=== PATIENT | male | born 1990 | race Caucasian/White ===

== ENCOUNTER 2019-01-08 09:54 | Inpatient (IN) | payer MEDICAID ==
[~2019-01-08] VITALS: Ht 162.6 cm; Wt 64.5 kg
[2019-01-08 10:35] LABS: BASOPHILS % (AUTO) 0.7 % (0.0-2.0); EOSINOPHILS % (AUTO) 2.9 % (1.0-6.0); HEMATOCRIT 46.3 % (41-53); HEMOGLOBIN 16.2 g/dL (13.5-17.5); LYMPHOCYTES # (AUTO) 1.8 K/uL (1.0-4.8); MEAN CORPUSCULAR HEMOGLOBIN 33.9 pg (26.0-34.0); MEAN CORPUSCULAR HGB CONC 34.9 G/dL (31.0-37.0); MEAN CORPUSCULAR VOLUME 97 fL (80-100); MONOCYTES # (AUTO) 0.6 K/uL (0.1-1.0); NEUTROPHILS # (AUTO) 6.8 K/uL (1.8-7.7); NEUTROPHILS % (AUTO) 71.4 % (40.0-70.0); PLATELET COUNT (AUTO) 335 K/uL (150-450); RED BLOOD CELL COUNT(AUTO) 4.78 MIL/uL (4.50-5.90); RED CELL DISTRIBUTION WIDTH 13.1 % (11.5-14.5)
[2019-01-08 10:48] LABS: ANION GAP 9 mmol/L (8-16); CALCIUM, TOTAL 8.7 mg/dL (8.8-10.5); CARBON DIOXIDE 28 mmol/L (22-29); CHLORIDE 101 mmol/L (98-107); CREATININE 0.86 mg/dL (0.60-1.30); GLOMERULAR FILTR. RATE CALC > 60 mL/min (>60); GLUCOSE,RANDOM 96 mg/dL (70-110); POTASSIUM 3.8 mmol/L (3.5-5.1); SODIUM SERUM 138 mmol/L (136-145); UREA NITROGEN, BLOOD 12 mg/dL (7-18)
[2019-01-08 10:55] LABS: ALANINE AMINOTRANSFERASE 131 U/L (12-78); ALBUMIN 4.2 g/dL (3.4-5.0); ALKALINE PHOSPHATASE 76 U/L (46-116); ASPARTATE AMINOTRANSFERASE 112 U/L (15-37); BILIRUBIN,TOTAL 0.3 mg/dL (0.1-1.0); TOTAL PROTEIN, SERUM 8.2 g/dL (6.4-8.2)
[2019-01-08] MEDS ORDERED: ACETAMINOPHEN 325 MG TABLET PO PRN ×2 (12:00→18:00)
[2019-01-08] MEDS ORDERED: ZOLPIDEM TARTRATE 10 MG TABLET PO PRN (12:00)
[2019-01-08] MEDS ORDERED: HALOPERIDOL 5 MG TABLET PO PRN (12:00)
[2019-01-08] MEDS ORDERED: LORazepam 2 MG TABLET PO PRN (12:00)
[2019-01-08] MEDS ORDERED: IBUPROFEN 400 MG TABLET PO PRN ×2 (12:00→18:00)
[2019-01-08] MEDS ORDERED: LORazepam 2 MG TABLET PO ONE (12:30)
[2019-01-08] MEDS ORDERED: HALOPERIDOL 5 MG TABLET PO ONE (12:30)
[2019-01-08] MEDS ORDERED: DiphenhydrAMINE HCL 50 MG CAPSULE PO ONE (12:30)
[2019-01-08 15:27] LABS: AMPHET/METH SCREEN,URINE NEGATIVE (NEGATIVE); BARBITURATE SCREEN, URINE NEGATIVE (NEGATIVE); BENZODIAZEPINES SCREEN,URINE NEGATIVE (NEGATIVE); CANNABINOID SCREEN,URINE POSITIVE (NEGATIVE); COCAINE SCREEN,URINE NEGATIVE (NEGATIVE); METHADONE SCREEN, URINE NEGATIVE (NEGATIVE); OPIATE SCREEN,URINE NEGATIVE (NEGATIVE)
[2019-01-08 15:30] LABS: PHENCYCLIDINE SCREEN,URINE NEGATIVE (NEGATIVE)
[2019-01-08 16:00] VITALS: BP 135/91
[2019-01-08] MEDS ORDERED: ALBUTEROL SULFATE HFA 90 MCG/PUFF 8 GM INHALER IH PRN (18:00)
[2019-01-08] MEDS ORDERED: MAGNESIUM HYDROXIDE SUSPENSION 30 ML UDCUP PO PRN (18:00)
[2019-01-08] MEDS ORDERED: PETROLATUM,WHITE 71 GM JELLY TP PRN (18:00)
[2019-01-08] MEDS ORDERED: DOCUSATE SODIUM 100 MG CAPSULE PO PRN (18:00)
[2019-01-08] MEDS ORDERED: GuaiFENesin/D-METHORPHAN [SUGAR-FREE] 200-20MG/10 ML SYRUP UDCUP PO PRN (18:00)
[2019-01-08] MEDS ORDERED: NICOTINE 14 MG/24 HOUR PATCH TD PRN (18:00)
[2019-01-08] MEDS ORDERED: CloNIDine HCL 0.1 MG TABLET PO PRN (18:00)
[2019-01-08] MEDS ORDERED: MAG HYDROX/AL HYDROX/SIMETH ES 30 ML SUSPENSION UDCUP PO PRN (18:00)
[2019-01-08] MEDS ORDERED: LOPERAMIDE HCL 2 MG CAPSULE PO PRN (18:00)
[2019-01-08] MEDS ORDERED: ONDANSETRON HCL 4 MG TABLET PO PRN (18:00)
[2019-01-09] VITALS (7 sets, daily range): BP systolic 127–146; BP diastolic 68–85
[2019-01-09 06:37] LABS: BASOPHILS % (AUTO) 0.7 % (0.0-2.0); EOSINOPHILS % (AUTO) 1.4 % (1.0-6.0); HEMATOCRIT 44.5 % (41-53); HEMOGLOBIN 15.6 g/dL (13.5-17.5); LYMPHOCYTES # (AUTO) 1.7 K/uL (1.0-4.8); LYMPHOCYTES % (AUTO) 14.3 % (22.0-44.0); MEAN CORPUSCULAR HGB CONC 35.1 G/dL (31.0-37.0); MEAN CORPUSCULAR VOLUME 97 fL (80-100); MONOCYTES # (AUTO) 1.1 K/uL (0.1-1.0); MONOCYTES % (AUTO) 9.3 % (2.0-9.0); NEUTROPHILS # (AUTO) 8.6 K/uL (1.8-7.7); NEUTROPHILS % (AUTO) 74.3 % (40.0-70.0); PLATELET COUNT (AUTO) 309 K/uL (150-450)
[2019-01-09 07:02] LABS: HEMOGLOBIN A1C 5.2 % (4.5-6.2)
[2019-01-09 07:10] LABS: ALANINE AMINOTRANSFERASE 107 U/L (12-78); ALKALINE PHOSPHATASE 73 U/L (46-116); ANION GAP 9 mmol/L (8-16); ASPARTATE AMINOTRANSFERASE 63 U/L (15-37); BILIRUBIN,TOTAL 0.9 mg/dL (0.1-1.0); CALCIUM, TOTAL 9.6 mg/dL (8.8-10.5); CARBON DIOXIDE 28 mmol/L (22-29); CHLORIDE 97 mmol/L (98-107); CHOLESTEROL 219 mg/dL (131-200); GLOMERULAR FILTR. RATE CALC > 60 mL/min (>60); GLUCOSE,RANDOM 91 mg/dL (70-110); HDL CHOLESTEROL 74 mg/dL (40-60); LDL CHOL (CALC.) 129 mg/dL (0-130); SODIUM SERUM 134 mmol/L (136-145); THYROID STIMULATING HORMONE 2.71 uIU/mL (0.36-3.74); TRIGLYCERIDES 79 mg/dL (15-150); UREA NITROGEN, BLOOD 16 mg/dL (7-18)
[2019-01-09] MEDS: RisperiDONE 1 MG TABLET PO SCH ×2 (13:58→20:24)
[2019-01-09] MEDS: SERTRALINE HCL 50 MG TABLET PO SCH (13:58)
[2019-01-09] MEDS: MULTIVITAMINS WITH MINERALS, THERAPEUTIC TABLET PO SCH (13:59)
[2019-01-09] MEDS: FOLIC ACID 1 MG TABLET PO SCH (13:59)
[2019-01-09] MEDS ORDERED: CYANOCOBALAMIN 1,000 MCG/ML VIAL IM ONE (14:00)
[2019-01-09] MEDS ORDERED: LORazepam 2 MG TABLET PO PRN (14:00)
[2019-01-09] MEDS: THIAMINE HCL 100 MG TABLET PO SCH (16:20)
[2019-01-10] VITALS (8 sets, daily range): BP systolic 118–147; BP diastolic 77–82
[2019-01-10] MEDS ORDERED: LORazepam 2 MG TABLET PO PRN (07:00)
[2019-01-10] MEDS: THIAMINE HCL 100 MG TABLET PO SCH ×2 (08:12→16:11)
[2019-01-10] MEDS: FOLIC ACID 1 MG TABLET PO SCH (08:12)
[2019-01-10] MEDS: LORazepam 2 MG TABLET PO SCH ×4 (08:12→20:45)
[2019-01-10] MEDS: RisperiDONE 1 MG TABLET PO SCH ×2 (08:13→20:45)
[2019-01-10] MEDS: SERTRALINE HCL 50 MG TABLET PO SCH (08:13)
[2019-01-10] MEDS: MULTIVITAMINS WITH MINERALS, THERAPEUTIC TABLET PO SCH (08:13)
[2019-01-10] MEDS: SODIUM CHLORIDE 1 GM TABLET PO SCH (08:14)
[2019-01-11 06:14] VITALS: BP 137/87
[2019-01-11 06:16] VITALS: BP 137/87
[2019-01-11] MEDS: SERTRALINE HCL 50 MG TABLET PO SCH (08:28)
[2019-01-11] MEDS: FOLIC ACID 1 MG TABLET PO SCH (08:28)
[2019-01-11] MEDS: MULTIVITAMINS WITH MINERALS, THERAPEUTIC TABLET PO SCH (08:28)
[2019-01-11] MEDS: THIAMINE HCL 100 MG TABLET PO SCH (08:28)
[2019-01-11] MEDS: RisperiDONE 1 MG TABLET PO SCH (08:28)
[2019-01-11] MEDS: LORazepam 2 MG TABLET PO SCH (08:28)
[2019-01-11] MEDS: SODIUM CHLORIDE 1 GM TABLET PO SCH (08:28)
[2019-01-11 08:49] VITALS: BP 119/96
[2019-01-11 09:14] VITALS: BP 119/96
[2019-01-11] MEDS ORDERED: RISP2 PO (11:07)
[2019-01-11] MEDS ORDERED: SERT50TA12 PO (11:08)
[2019-01-11] MEDS ORDERED: NACL1 PO (11:11)
[2019-01-12] MEDS ORDERED: LORazepam 1 MG TABLET PO PRN (07:00)
[2019-01-12] MEDS ORDERED: LORazepam 1 MG TABLET PO SCH (09:00)
[2019-01-13] MEDS ORDERED: LORazepam 1 MG TABLET PO PRN (07:00)
== END 2019-01-11 12:00 | disposition home or self-care (01) | DRG 750 ==
LOC: EMS 09:55 → 3EC 15:01
PROVIDERS: ADMIT Psychiatry & Neurology Psychiatry; ATTEND Psychiatry & Neurology Psychiatry
DX: F20.0 Paranoid schizophrenia (principal); R45.851 Suicidal ideations; E87.1 Hypo-osmolality and hyponatremia; F17.210 Nicotine dependence, cigarettes, uncomplicated; Z28.21 Immunization not carried out because of patient refusal; Z88.0 Allergy status to penicillin; Z91.5 Personal history of self-harm; D72.829 Elevated white blood cell count, unspecified; E78.5 Hyperlipidemia, unspecified; F10.10 Alcohol abuse, uncomplicated; F12.90 Cannabis use, unspecified, uncomplicated; R74.0 Nonspecific elevation of levels of transaminase and lactic acid dehydrogenase [LDH]
CPT/HCPCS: 83036; 84443; G0480; J3420

== ENCOUNTER 2019-01-11 22:15 | Inpatient (IN) | payer MEDICAID ==
[~2019-01-11] VITALS: Ht 165.1 cm; Wt 62.7 kg
[~2019-01-11 22:15] MED LIST: NACL1 PO; RISP2 PO; SERT50TA12 PO
[2019-01-11] MEDS ORDERED: DiphenhydrAMINE HCL 50 MG/ML VIAL IM ONE (23:15)
[2019-01-11] MEDS ORDERED: LORazepam 2 MG/ML VIAL IM ONE (23:15)
[2019-01-11] MEDS ORDERED: HALOPERIDOL LACTATE 5 MG/ML VIAL IM ONE (23:15)
[2019-01-11 23:23] LABS: BASOPHILS % (AUTO) 0.7 % (0.0-2.0); EOSINOPHILS % (AUTO) 2.5 % (1.0-6.0); HEMATOCRIT 46.7 % (41-53); HEMOGLOBIN 16.1 g/dL (13.5-17.5); LYMPHOCYTES # (AUTO) 2.6 K/uL (1.0-4.8); MEAN CORPUSCULAR HEMOGLOBIN 33.3 pg (26.0-34.0); MEAN CORPUSCULAR HGB CONC 34.4 G/dL (31.0-37.0); MEAN CORPUSCULAR VOLUME 97 fL (80-100); MONOCYTES # (AUTO) 0.9 K/uL (0.1-1.0); MONOCYTES % (AUTO) 9.2 % (2.0-9.0); NEUTROPHILS # (AUTO) 6.2 K/uL (1.8-7.7); NEUTROPHILS % (AUTO) 61.6 % (40.0-70.0); PLATELET COUNT (AUTO) 334 K/uL (150-450); RED BLOOD CELL COUNT(AUTO) 4.83 MIL/uL (4.50-5.90); RED CELL DISTRIBUTION WIDTH 13.2 % (11.5-14.5)
[2019-01-11 23:34] LABS: ANION GAP 16 mmol/L (8-16); CALCIUM, TOTAL 9.6 mg/dL (8.8-10.5); CARBON DIOXIDE 25 mmol/L (22-29); CHLORIDE 99 mmol/L (98-107); CREATININE 1.02 mg/dL (0.60-1.30); GLOMERULAR FILTR. RATE CALC > 60 mL/min (>60); GLUCOSE,RANDOM 93 mg/dL (70-110); SODIUM SERUM 140 mmol/L (136-145); UREA NITROGEN, BLOOD 15 mg/dL (7-18)
[2019-01-11 23:40] LABS: ALANINE AMINOTRANSFERASE 233 U/L (12-78); ALBUMIN 4.7 g/dL (3.4-5.0); ALKALINE PHOSPHATASE 86 U/L (46-116); ASPARTATE AMINOTRANSFERASE 151 U/L (15-37); BILIRUBIN,TOTAL 0.3 mg/dL (0.1-1.0); TOTAL PROTEIN, SERUM 9.1 g/dL (6.4-8.2)
[2019-01-12 00:38] LABS: AMPHET/METH SCREEN,URINE NEGATIVE (NEGATIVE); BARBITURATE SCREEN, URINE NEGATIVE (NEGATIVE); BENZODIAZEPINES SCREEN,URINE NEGATIVE (NEGATIVE); CANNABINOID SCREEN,URINE POSITIVE (NEGATIVE); COCAINE SCREEN,URINE NEGATIVE (NEGATIVE); METHADONE SCREEN, URINE NEGATIVE (NEGATIVE); OPIATE SCREEN,URINE NEGATIVE (NEGATIVE)
[2019-01-12 00:39] LABS: PHENCYCLIDINE SCREEN,URINE NEGATIVE (NEGATIVE)
[2019-01-12] MEDS ORDERED: LORazepam 2 MG/ML VIAL IM ONE (03:15)
[2019-01-12] MEDS ORDERED: HALOPERIDOL LACTATE 5 MG/ML VIAL IM ONE (03:15)
[2019-01-12] MEDS ORDERED: HALOPERIDOL 5 MG TABLET PO PRN (04:45)
[2019-01-12] MEDS ORDERED: LORazepam 2 MG TABLET PO PRN ×2 (04:45→12:30)
[2019-01-12 08:15] LABS: APPEARANCE,URINE CLEAR (CLEAR); BILIRUBIN,URINE NEGATIVE (NEGATIVE); GLUCOSE, URINE (UA) NEGATIVE (NEGATIVE); KETONES,URINE NEGATIVE (NEGATIVE); LEUKOCYTE ESTERASE ,URINE NEGATIVE (NEGATIVE); NITRATE,URINE NEGATIVE (NEGATIVE); OCCULT BLOOD,URINE NEGATIVE (NEGATIVE); PH,URINE 5.5 (5.0-8.0); PROTEIN,URINE NEGATIVE (NEGATIVE); UROBILINOGEN,URINE 0.2 mg/dL (<=1.0)
[2019-01-12 11:17] VITALS: BP 122/79
[2019-01-12 13:00] VITALS: BP 140/77
[2019-01-12 14:03] VITALS: BP 143/82
[2019-01-12 15:45] VITALS: BP 138/80
[2019-01-12 16:30] VITALS: BP 118/73
[2019-01-12 19:45] VITALS: BP 124/77
[2019-01-12] MEDS: RisperiDONE 2 MG TABLET PO SCH (20:38)
[2019-01-13] VITALS (8 sets, daily range): BP systolic 112–132; BP diastolic 60–79
[2019-01-13] MEDS ORDERED: LORazepam 2 MG TABLET PO PRN (07:00)
[2019-01-13 07:15] LABS: BASOPHILS % (AUTO) 0.8 % (0.0-2.0); EOSINOPHILS % (AUTO) 3.5 % (1.0-6.0); HEMATOCRIT 42.8 % (41-53); HEMOGLOBIN 15.1 g/dL (13.5-17.5); LYMPHOCYTES # (AUTO) 2.3 K/uL (1.0-4.8); LYMPHOCYTES % (AUTO) 25.9 % (22.0-44.0); MEAN CORPUSCULAR HEMOGLOBIN 34.2 pg (26.0-34.0); MEAN CORPUSCULAR HGB CONC 35.3 G/dL (31.0-37.0); MEAN CORPUSCULAR VOLUME 97 fL (80-100); MONOCYTES % (AUTO) 11.2 % (2.0-9.0); NEUTROPHILS # (AUTO) 5.1 K/uL (1.8-7.7); NEUTROPHILS % (AUTO) 58.6 % (40.0-70.0); PLATELET COUNT (AUTO) 286 K/uL (150-450); RED BLOOD CELL COUNT(AUTO) 4.41 MIL/uL (4.50-5.90); RED CELL DISTRIBUTION WIDTH 13.1 % (11.5-14.5)
[2019-01-13 07:30] LABS: HEMOGLOBIN A1C 5.3 % (4.5-6.2)
[2019-01-13 07:42] LABS: ALANINE AMINOTRANSFERASE 195 U/L (12-78); ALBUMIN 3.9 g/dL (3.4-5.0); ALKALINE PHOSPHATASE 74 U/L (46-116); ANION GAP 7 mmol/L (8-16); ASPARTATE AMINOTRANSFERASE 132 U/L (15-37); BILIRUBIN,TOTAL 0.5 mg/dL (0.1-1.0); CALCIUM, TOTAL 9.5 mg/dL (8.8-10.5); CARBON DIOXIDE 31 mmol/L (22-29); CHLORIDE 96 mmol/L (98-107); CHOL/HDL RATIO 3.6 (4.2-7.3); CHOLESTEROL 185 mg/dL (131-200); CREATININE 1.18 mg/dL (0.60-1.30); GLOMERULAR FILTR. RATE CALC > 60 mL/min (>60); GLUCOSE,RANDOM 83 mg/dL (70-110); HDL CHOLESTEROL 51 mg/dL (40-60); LDL CHOL (CALC.) 120 mg/dL (0-130); POTASSIUM 4.5 mmol/L (3.5-5.1); SODIUM SERUM 134 mmol/L (136-145); THYROID STIMULATING HORMONE 1.39 uIU/mL (0.36-3.74); TOTAL PROTEIN, SERUM 7.4 g/dL (6.4-8.2); TRIGLYCERIDES 69 mg/dL (15-150); UREA NITROGEN, BLOOD 25 mg/dL (7-18)
[2019-01-13] MEDS: RisperiDONE 2 MG TABLET PO SCH ×2 (08:15→20:20)
[2019-01-13] MEDS: SERTRALINE HCL 50 MG TABLET PO SCH (08:15)
[2019-01-13] MEDS: LORazepam 2 MG TABLET PO SCH ×4 (08:15→20:20)
[2019-01-13] MEDS: ZOLPIDEM TARTRATE 10 MG TABLET PO PRN (21:57)
[2019-01-14] VITALS: BP 113/74
[2019-01-14] MEDS: LORazepam 2 MG TABLET PO SCH ×4 (07:44→20:23)
[2019-01-14] MEDS: RisperiDONE 2 MG TABLET PO SCH ×2 (07:44→20:23)
[2019-01-14] MEDS: SERTRALINE HCL 50 MG TABLET PO SCH (07:44)
[2019-01-14 08:55] VITALS: BP 116/61
[2019-01-14 08:56] VITALS: BP 116/61
[2019-01-14 20:00] VITALS: BP 122/62
[2019-01-14] MEDS: ZOLPIDEM TARTRATE 10 MG TABLET PO PRN (21:25)
[2019-01-15] VITALS: BP 119/73
[2019-01-15] MEDS ORDERED: LORazepam 1 MG TABLET PO PRN (07:00)
[2019-01-15] MEDS: SERTRALINE HCL 50 MG TABLET PO SCH (08:18)
[2019-01-15] MEDS: RisperiDONE 2 MG TABLET PO SCH ×2 (08:18→21:06)
[2019-01-15] MEDS: LORazepam 1 MG TABLET PO SCH ×4 (08:18→21:06)
[2019-01-15 08:54] VITALS: BP 115/72
[2019-01-15 08:59] VITALS: BP 115/72
[2019-01-15 16:00] VITALS: BP 102/61
[2019-01-15] MEDS: ZOLPIDEM TARTRATE 10 MG TABLET PO PRN (21:06)
[2019-01-16 06:26] VITALS: BP 116/72
[2019-01-16] MEDS ORDERED: LORazepam 1 MG TABLET PO PRN (07:00)
[2019-01-16] MEDS: SERTRALINE HCL 50 MG TABLET PO SCH (08:20)
[2019-01-16] MEDS: RisperiDONE 2 MG TABLET PO SCH (08:20)
[2019-01-16 08:21] VITALS: BP 105/60
[2019-01-16 15:14] VITALS: BP 132/88
[2019-01-16 16:00] VITALS: BP 147/85
== END 2019-01-16 18:30 | disposition left against medical advice (07) | DRG 750 ==
LOC: EMS 22:17 → 3EC 01-12 05:43
PROVIDERS: ADMIT Psychiatry & Neurology Psychiatry; ATTEND Psychiatry & Neurology Psychiatry
DX: F20.0 Paranoid schizophrenia (principal); E87.1 Hypo-osmolality and hyponatremia; K70.30 Alcoholic cirrhosis of liver without ascites; F10.129 Alcohol abuse with intoxication, unspecified; F12.10 Cannabis abuse, uncomplicated; F17.200 Nicotine dependence, unspecified, uncomplicated; E78.5 Hyperlipidemia, unspecified; F32.9 Major depressive disorder, single episode, unspecified; Z79.899 Other long term (current) drug therapy; Z53.21 Procedure and treatment not carried out due to patient leaving prior to being seen by health care provider; Z28.21 Immunization not carried out because of patient refusal; Z88.0 Allergy status to penicillin
CPT/HCPCS: 83036; 84443; 87081; 96372; 99291; G0480; J1200; J1630; J2060

== ENCOUNTER 2019-02-09 21:15 | Emergency (ER) | payer MEDICAID ==
[~2019-02-09 21:15] MED LIST changes: -NACL1 PO
== END 2019-02-09 23:30 | disposition left against medical advice (07) ==
LOC: EMS 21:15
DX: Z00.8 Encounter for other general examination (principal); Z53.21 Procedure and treatment not carried out due to patient leaving prior to being seen by health care provider

== ENCOUNTER 2019-07-21 06:08 | Inpatient (IN) | payer MEDICAID ==
[~2019-07-21] VITALS: Ht 157.5 cm; Wt 70.9 kg
[2019-07-21 06:48] LABS: BASOPHILS % (AUTO) 0.7 % (0.0-2.0); EOSINOPHILS % (AUTO) 1.7 % (1.0-6.0); HEMATOCRIT 44.6 % (41-53); HEMOGLOBIN 15.1 g/dL (13.5-17.5); LYMPHOCYTES # (AUTO) 1.5 K/uL (1.0-4.8); MEAN CORPUSCULAR HEMOGLOBIN 33.1 pg (26.0-34.0); MEAN CORPUSCULAR HGB CONC 33.8 G/dL (31.0-37.0); MEAN CORPUSCULAR VOLUME 98 fL (80-100); MONOCYTES # (AUTO) 1.1 K/uL (0.1-1.0); MONOCYTES % (AUTO) 6.7 % (2.0-9.0); NEUTROPHILS # (AUTO) 13.4 K/uL (1.8-7.7); NEUTROPHILS % (AUTO) 81.9 % (40.0-70.0); PLATELET COUNT (AUTO) 337 K/uL (150-450); RED BLOOD CELL COUNT(AUTO) 4.56 MIL/uL (4.50-5.90); RED CELL DISTRIBUTION WIDTH 13.1 % (11.5-14.5)
[2019-07-21 07:00] LABS: ANION GAP 12 mmol/L (8-16); CALCIUM, TOTAL 9.1 mg/dL (8.8-10.5); CARBON DIOXIDE 27 mmol/L (22-29); CHLORIDE 99 mmol/L (98-107); CREATININE 0.97 mg/dL (0.60-1.30); GLOMERULAR FILTR. RATE CALC > 60 mL/min (>60); GLUCOSE,RANDOM 94 mg/dL (70-110); POTASSIUM 3.9 mmol/L (3.5-5.1); SODIUM SERUM 138 mmol/L (136-145); UREA NITROGEN, BLOOD 15 mg/dL (7-18)
[2019-07-21 07:06] LABS: ALANINE AMINOTRANSFERASE 105 U/L (12-78); ALBUMIN 4.4 g/dL (3.4-5.0); ALKALINE PHOSPHATASE 64 U/L (46-116); ASPARTATE AMINOTRANSFERASE 96 U/L (15-37); BILIRUBIN,TOTAL 0.9 mg/dL (0.1-1.0); TOTAL PROTEIN, SERUM 8.1 g/dL (6.4-8.2)
[2019-07-21] MEDS ORDERED: SERTRALINE HCL 50 MG TABLET PO ONE (10:00)
[2019-07-21] MEDS ORDERED: RisperiDONE 1 MG TABLET PO ONE (10:00)
[2019-07-21 10:37] LABS: AMPHET/METH SCREEN,URINE NEGATIVE (NEGATIVE); BARBITURATE SCREEN, URINE NEGATIVE (NEGATIVE); BENZODIAZEPINES SCREEN,URINE NEGATIVE (NEGATIVE); CANNABINOID SCREEN,URINE POSITIVE (NEGATIVE); COCAINE SCREEN,URINE NEGATIVE (NEGATIVE); METHADONE SCREEN, URINE NEGATIVE (NEGATIVE); OPIATE SCREEN,URINE NEGATIVE (NEGATIVE); PHENCYCLIDINE SCREEN,URINE NEGATIVE (NEGATIVE)
[2019-07-21] MEDS ORDERED: ACETAMINOPHEN 325 MG TABLET PO PRN ×2 (12:45→13:45)
[2019-07-21] MEDS ORDERED: 0.9% SODIUM CHLORIDE 10 ML SYRINGE IVP PRN (12:45)
[2019-07-21] MEDS: HALOPERIDOL 5 MG TABLET PO PRN (13:17)
[2019-07-21] MEDS: LORazepam 2 MG TABLET PO PRN (13:17)
[2019-07-21 13:22] VITALS: BP 146/99
[2019-07-21] MEDS ORDERED: CloNIDine HCL 0.1 MG TABLET PO PRN (13:45)
[2019-07-21] MEDS ORDERED: MAGNESIUM HYDROXIDE SUSPENSION 30 ML UDCUP PO PRN (13:45)
[2019-07-21] MEDS ORDERED: OMEPRAZOLE 20 MG CAPSULE PO PRN (13:45)
[2019-07-21] MEDS ORDERED: ALBUTEROL SULFATE HFA 90 MCG/PUFF 8 GM INHALER IH PRN (13:45)
[2019-07-21] MEDS ORDERED: LOPERAMIDE HCL 2 MG CAPSULE PO PRN (13:45)
[2019-07-21] MEDS ORDERED: DOCUSATE SODIUM 100 MG CAPSULE PO PRN (13:45)
[2019-07-21] MEDS ORDERED: BENZOCAINE/MENTHOL LOZENGE MM PRN (13:45)
[2019-07-21] MEDS ORDERED: BACITRACIN 28.4 GM OINTMENT TP PRN (13:45)
[2019-07-21] MEDS ORDERED: IBUPROFEN 600 MG TABLET PO PRN (13:45)
[2019-07-21] MEDS ORDERED: ONDANSETRON HCL 4 MG TABLET PO PRN (13:45)
[2019-07-21] MEDS ORDERED: PETROLATUM,WHITE 28 GM JELLY TP PRN (13:45)
[2019-07-21] MEDS ORDERED: MAG HYDROX/AL HYDROX/SIMETH ES 30 ML SUSPENSION UDCUP PO PRN (13:45)
[2019-07-21 16:00] VITALS: BP 108/67
[2019-07-22] VITALS (8 sets, daily range): BP systolic 110–132; BP diastolic 60–86
[2019-07-22 09:31] LABS: CHOL/HDL RATIO 4.4 (4.2-7.3); FREE T4 (FREE THYROXINE) 1.13 ng/dL (0.76-1.46); THYROID STIMULATING HORMONE 1.74 uIU/mL (0.36-3.74)
[2019-07-22] MEDS: LORazepam 2 MG TABLET PO PRN (10:50)
[2019-07-22] MEDS ORDERED: CYANOCOBALAMIN 1,000 MCG/ML VIAL IM ONE (13:15)
[2019-07-22] MEDS ORDERED: LORazepam 2 MG TABLET PO PRN (13:15)
[2019-07-22] MEDS: MULTIVITAMINS WITH MINERALS, THERAPEUTIC TABLET PO SCH (13:41)
[2019-07-22] MEDS: RisperiDONE 2 MG TABLET PO SCH ×2 (13:41→20:32)
[2019-07-22] MEDS: SERTRALINE HCL 50 MG TABLET PO SCH (13:41)
[2019-07-22] MEDS: FOLIC ACID 1 MG TABLET PO SCH (13:41)
[2019-07-22] MEDS: THIAMINE HCL 100 MG TABLET PO SCH (16:58)
[2019-07-22] MEDS: ZOLPIDEM TARTRATE 10 MG TABLET PO PRN (20:33)
[2019-07-23] VITALS (7 sets, daily range): BP systolic 117–125; BP diastolic 53–92
[2019-07-23] MEDS ORDERED: LORazepam 2 MG TABLET PO PRN (07:00)
[2019-07-23 08:01] LABS: BAND NEUTROPHILS % (MANUAL) 0 % (0-5)
[2019-07-23 08:08] LABS: HEMOGLOBIN 15.7 g/dL (13.5-17.5); MEAN CORPUSCULAR HEMOGLOBIN 33.4 pg (26.0-34.0); MEAN CORPUSCULAR HGB CONC 34.2 G/dL (31.0-37.0); MEAN CORPUSCULAR VOLUME 98 fL (80-100); PLATELET COUNT (AUTO) 291 K/uL (150-450); RED BLOOD CELL COUNT(AUTO) 4.71 MIL/uL (4.50-5.90)
[2019-07-23 08:18] LABS: ANION GAP 7 mmol/L (8-16); CALCIUM, TOTAL 9.6 mg/dL (8.8-10.5); CARBON DIOXIDE 30 mmol/L (22-29); CHLORIDE 99 mmol/L (98-107); CREATININE 1.02 mg/dL (0.60-1.30); GLOMERULAR FILTR. RATE CALC > 60 mL/min (>60); GLUCOSE,RANDOM 81 mg/dL (70-110); PHOSPHORUS 3.3 mg/dL (2.5-4.9); POTASSIUM 3.5 mmol/L (3.5-5.1); SODIUM SERUM 136 mmol/L (136-145); UREA NITROGEN, BLOOD 10 mg/dL (7-18)
[2019-07-23 09:06] LABS: EOSINOPHILS % (MANUAL) 5 % (1-6); LYMPHOCYTES % (MANUAL) 26 % (22-44); MONOCYTES % (MANUAL) 7 % (2-9); SEGMENTED NEUTROPHILS % 62 % (40-70)
[2019-07-23] MEDS: MULTIVITAMINS WITH MINERALS, THERAPEUTIC TABLET PO SCH (09:16)
[2019-07-23] MEDS: LORazepam 2 MG TABLET PO SCH ×4 (09:16→20:51)
[2019-07-23] MEDS: THIAMINE HCL 100 MG TABLET PO SCH ×2 (09:16→17:13)
[2019-07-23] MEDS: SERTRALINE HCL 50 MG TABLET PO SCH (09:16)
[2019-07-23] MEDS: FOLIC ACID 1 MG TABLET PO SCH (09:16)
[2019-07-23] MEDS: RisperiDONE 2 MG TABLET PO SCH ×2 (09:16→20:51)
[2019-07-23] MEDS: MAGNESIUM OXIDE 400 MG TABLET PO SCH ×2 (10:49→17:13)
[2019-07-23] MEDS: ZOLPIDEM TARTRATE 10 MG TABLET PO PRN (20:51)
[2019-07-24 06:19] VITALS: BP 124/72
[2019-07-24 08:01] VITALS: BP 115/59
[2019-07-24] MEDS: MAGNESIUM OXIDE 400 MG TABLET PO SCH ×2 (08:53→16:03)
[2019-07-24] MEDS: THIAMINE HCL 100 MG TABLET PO SCH ×2 (08:53→16:03)
[2019-07-24] MEDS: SERTRALINE HCL 50 MG TABLET PO SCH (08:53)
[2019-07-24] MEDS: LORazepam 2 MG TABLET PO SCH ×4 (08:53→20:38)
[2019-07-24] MEDS: RisperiDONE 2 MG TABLET PO SCH ×2 (08:53→20:38)
[2019-07-24] MEDS: FOLIC ACID 1 MG TABLET PO SCH (08:53)
[2019-07-24] MEDS: MULTIVITAMINS WITH MINERALS, THERAPEUTIC TABLET PO SCH (08:54)
[2019-07-24 09:50] VITALS: BP 115/59
[2019-07-24 16:00] VITALS: BP 130/77
[2019-07-24 16:36] VITALS: BP 130/77
[2019-07-24] MEDS: NICOTINE 21 MG/24 HOUR PATCH TD SCH (20:56)
[2019-07-24] MEDS: ZOLPIDEM TARTRATE 10 MG TABLET PO PRN (22:28)
[2019-07-25 02:19] VITALS: BP 133/86
[2019-07-25 02:20] VITALS: BP 133/86
[2019-07-25] MEDS ORDERED: LORazepam 1 MG TABLET PO PRN (07:00)
[2019-07-25 08:25] VITALS: BP 129/75
[2019-07-25] MEDS: MAGNESIUM OXIDE 400 MG TABLET PO SCH ×2 (08:28→16:07)
[2019-07-25] MEDS: NICOTINE 21 MG/24 HOUR PATCH TD SCH (08:28)
[2019-07-25] MEDS: SERTRALINE HCL 50 MG TABLET PO SCH (08:28)
[2019-07-25] MEDS: FOLIC ACID 1 MG TABLET PO SCH (08:28)
[2019-07-25] MEDS: MULTIVITAMINS WITH MINERALS, THERAPEUTIC TABLET PO SCH (08:28)
[2019-07-25] MEDS: LORazepam 1 MG TABLET PO SCH ×4 (08:28→20:48)
[2019-07-25] MEDS: THIAMINE HCL 100 MG TABLET PO SCH ×2 (08:30→16:07)
[2019-07-25] MEDS: RisperiDONE 2 MG TABLET PO SCH ×2 (08:31→20:48)
[2019-07-25 09:05] VITALS: BP 129/75
[2019-07-25 16:34] VITALS: BP 136/83
[2019-07-25 16:35] VITALS: BP 136/83
[2019-07-25] MEDS: ZOLPIDEM TARTRATE 10 MG TABLET PO PRN (20:48)
[2019-07-26 06:20] VITALS: BP 124/78
[2019-07-26 08:00] VITALS: BP 139/74
[2019-07-26] MEDS: THIAMINE HCL 100 MG TABLET PO SCH ×2 (08:07→16:06)
[2019-07-26] MEDS: LORazepam 1 MG TABLET PO PRN ×3 (08:07→20:41)
[2019-07-26] MEDS: MULTIVITAMINS WITH MINERALS, THERAPEUTIC TABLET PO SCH (08:08)
[2019-07-26] MEDS: NICOTINE 21 MG/24 HOUR PATCH TD SCH (08:08)
[2019-07-26] MEDS: SERTRALINE HCL 50 MG TABLET PO SCH (08:09)
[2019-07-26] MEDS: FOLIC ACID 1 MG TABLET PO SCH (08:09)
[2019-07-26] MEDS: RisperiDONE 2 MG TABLET PO SCH ×2 (08:09→20:41)
[2019-07-26] MEDS: MAGNESIUM OXIDE 400 MG TABLET PO SCH ×2 (08:10→16:06)
[2019-07-26 08:51] VITALS: BP 139/74
[2019-07-26 16:00] VITALS: BP 140/76
[2019-07-26] MEDS: HALOPERIDOL 5 MG TABLET PO PRN (16:06)
[2019-07-26 16:47] VITALS: BP 140/76
[2019-07-26] MEDS: ZOLPIDEM TARTRATE 10 MG TABLET PO PRN (20:41)
[2019-07-27 04:30] VITALS: BP 128/76
[2019-07-27 08:05] VITALS: BP 117/73
[2019-07-27] MEDS: FOLIC ACID 1 MG TABLET PO SCH (08:58)
[2019-07-27] MEDS: RisperiDONE 2 MG TABLET PO SCH ×2 (08:58→20:22)
[2019-07-27] MEDS: THIAMINE HCL 100 MG TABLET PO SCH ×2 (08:58→16:12)
[2019-07-27] MEDS: NICOTINE 21 MG/24 HOUR PATCH TD SCH (08:58)
[2019-07-27] MEDS: MAGNESIUM OXIDE 400 MG TABLET PO SCH ×2 (08:58→16:12)
[2019-07-27] MEDS: MULTIVITAMINS WITH MINERALS, THERAPEUTIC TABLET PO SCH (08:59)
[2019-07-27] MEDS: SERTRALINE HCL 50 MG TABLET PO SCH (08:59)
[2019-07-27 16:00] VITALS: BP 138/84
[2019-07-27] MEDS: ZOLPIDEM TARTRATE 10 MG TABLET PO PRN (20:22)
[2019-07-28 00:29] VITALS: BP 101/61
[2019-07-28] MEDS: HALOPERIDOL 5 MG TABLET PO PRN (02:28)
[2019-07-28 07:33] LABS: HEMATOCRIT 44.2 % (41-53); HEMOGLOBIN 15.2 g/dL (13.5-17.5); MEAN CORPUSCULAR HEMOGLOBIN 33.7 pg (26.0-34.0); MEAN CORPUSCULAR HGB CONC 34.4 G/dL (31.0-37.0); MEAN CORPUSCULAR VOLUME 98 fL (80-100); PLATELET COUNT (AUTO) 271 K/uL (150-450); RED BLOOD CELL COUNT(AUTO) 4.51 MIL/uL (4.50-5.90)
[2019-07-28 08:04] VITALS: BP 132/79
[2019-07-28 08:30] LABS: ANION GAP 10 mmol/L (8-16); CALCIUM, TOTAL 9.8 mg/dL (8.8-10.5); CARBON DIOXIDE 30 mmol/L (22-29); CHLORIDE 99 mmol/L (98-107); CHOL/HDL RATIO 5.2 (4.2-7.3); CHOLESTEROL 194 mg/dL (131-200); CREATININE 1.13 mg/dL (0.60-1.30); GLOMERULAR FILTR. RATE CALC > 60 mL/min (>60); GLUCOSE,RANDOM 84 mg/dL (70-110); HDL CHOLESTEROL 37 mg/dL (40-60); LDL CHOL (CALC.) 129 mg/dL (0-130); PHOSPHORUS 4.1 mg/dL (2.5-4.9); POTASSIUM 4.5 mmol/L (3.5-5.1); SODIUM SERUM 139 mmol/L (136-145); TRIGLYCERIDES 142 mg/dL (15-150); UREA NITROGEN, BLOOD 15 mg/dL (7-18)
[2019-07-28] MEDS ORDERED: MAGOX PO (08:41)
[2019-07-28] MEDS: MULTIVITAMINS WITH MINERALS, THERAPEUTIC TABLET PO SCH (08:50)
[2019-07-28] MEDS: FOLIC ACID 1 MG TABLET PO SCH (08:50)
[2019-07-28] MEDS: SERTRALINE HCL 50 MG TABLET PO SCH (08:51)
[2019-07-28] MEDS: MAGNESIUM OXIDE 400 MG TABLET PO SCH (08:52)
[2019-07-28] MEDS: THIAMINE HCL 100 MG TABLET PO SCH (08:52)
[2019-07-28] MEDS: RisperiDONE 2 MG TABLET PO SCH (08:52)
[2019-07-28] MEDS ORDERED: OMEGA-3/DHA/EPA/FISH OIL 1,000 MG CAPSULE PO SCH (09:00)
[2019-07-28 09:29] LABS: BAND NEUTROPHILS % (MANUAL) 1 % (0-5); EOSINOPHILS % (MANUAL) 6 % (1-6); LYMPHOCYTES % (MANUAL) 25 % (22-44); MONOCYTES % (MANUAL) 6 % (2-9); SEGMENTED NEUTROPHILS % 62 % (40-70)
[2019-07-28] MEDS: NICOTINE 21 MG/24 HOUR PATCH TD SCH (09:43)
== END 2019-07-28 16:45 | disposition home or self-care (01) | DRG 750 ==
LOC: EMS 06:11 → B3A 11:44
DX: F25.1 Schizoaffective disorder, depressive type (principal); R45.851 Suicidal ideations; D72.829 Elevated white blood cell count, unspecified; F10.20 Alcohol dependence, uncomplicated; F25.9 Schizoaffective disorder, unspecified; F17.210 Nicotine dependence, cigarettes, uncomplicated; F12.10 Cannabis abuse, uncomplicated; G47.00 Insomnia, unspecified; K59.00 Constipation, unspecified; F41.9 Anxiety disorder, unspecified; Z88.0 Allergy status to penicillin
CPT/HCPCS: 80074; 83735; 84100; 84439; 84443; 85007; G0480; J3420